=== PATIENT | male | born 1960 | race Two or more races ===

== ENCOUNTER 2018-04-25 13:35 | Outpatient (CLI) | payer OTHER | END 2018-04-25 13:45 | disposition home or self-care (01) | LOC: RAD 501 13:35 | DX: M25.522 Pain in left elbow (principal) ==

== ENCOUNTER 2018-05-10 14:38 | Outpatient (CLI) | payer OTHER | END 2018-05-10 14:57 | disposition home or self-care (01) | LOC: MRI 14:38 | DX: L03.114 Cellulitis of left upper limb (principal); M86.20 Subacute osteomyelitis, unspecified site | CPT/HCPCS: 73221 ==

== ENCOUNTER → 2018-05-31 | Day surgery (SDC) | payer OTHER ==
[~2018-05-31] MED LIST: LIPITOR20 MG PO
== END | disposition home or self-care (01) ==
LOC: CIR.AMB 06:10
DX: M70.22 Olecranon bursitis, left elbow (principal); S46.312A Strain of muscle, fascia and tendon of triceps, left arm, initial encounter